=== PATIENT | male | born 1955 | race Caucasian/White ===

== ENCOUNTER 2016-10-20 17:36 | Emergency (ER) | payer OTHER ==
[~2016-10-20] VITALS: Ht 182.9 cm; Wt 108.8 kg
[~2016-10-20 17:36] MED LIST: ADVIL200 M1 PO; ALEVE220 MG PO; ASPIR 8181 M1 PO; ATORVASTATIN CA20 MG PO; Aspirin E.C. PO; BYSTOLIC5 MG PO; CIPRO500 MG PO; COUMADIN1 MG PO; COUMADIN4 MG PO; FLAGYL500 MG PO; HUMALOG100 UNIT/1 SC; HUMALOG100 UNIT/2 SC; Habitrol,Nicoderm CQ TD; IMDUR60 MG PO; Imdur PO; LANTUS 3 M100 UNITS/ PO; LANTUS 3 M100 UNITS1 SC; LEVOTHROID125 MCG PO; LEVOTHROID175 MCG PO; LEVOTHYROXINE25 MCG PO; LIPITOR20 MG PO; LISINOPRIL-HCT1 EAC3 PO; Levothroid,Synthroid PO; Lipitor PO; Lopressor PO; NAPROSYN500 MG PO; NITROSTAT0.4 MG SL; NORCO 5/3251 TABLET PO; NOVOLIN 70100 UNIT/1 SQ; NOVOLOG 10100 UNITS/ SC; Nitrostat,NitroQuick SL; OXYCODONE HCL30 MG PO; OXYCONTIN15 MG PO; PANTOPRAZOLE SO40 MG PO; PLAVIX75 MG PO; PROTONIX40 MG PO; Percocet 5/325,Endoc PO; Plavix PO; Protonix PO; TYLENOL325 M1 PO; ULTRAM50 MG PO; WARFARIN SODIUM1 MG PO; WARFARIN SODIUM4 MG PO; ZESTRIL,PRINIVI20 MG PO; ZOFRAN8 MG PO; Zestoretic,Prinzide PO; oxyCODONE PO
[2016-10-20 18:15] LABS: HEMATOCRIT 50.2 % (38.0-50.0); MCH 29.8 PG (29.0-34.0); MCHC 33.3 G/DL (30.0-36.0); MCV 89.5 FL (86-99); MEAN PLAT.VOLUME 9.9 uM^3 (9.0-12.4); PLATELET COUNT 212 K/uL (156-360); RBC DIS.WIDTH-CV 12.5 % (11.8-14.6); RBC DIS.WIDTH-SD 41.1 % (39-53); RED BLOOD COUNT 5.61 M/uL (4.00-5.50); WHITE BLOOD COUNT 8.5 K/uL (4.1-10.2)
[2016-10-20 18:26] LABS: CHLORIDE 103 mEq/L (99-109); POTASSIUM 4.1 mEq/L (3.7-5.4); SODIUM 138 mEq/L (136-147)
[2016-10-20 18:28] LABS: GLUCOSE 142 mg/dL (70-99)
[2016-10-20 18:30] LABS: ANION GAP 8 MEQ/L (2-14)
[2016-10-20 18:32] LABS: GFR ESTIMATE (CALCULATED) > 59 mL/min/
[2016-10-20 18:33] LABS: UREA NITROGEN (BUN) 14 mg/dL (9-23)
[2016-10-20 19:04] LABS: ADD MIUA? YES; BILIRUBIN NEGATIVE; BLOOD SMALL; COLOR YELLOW ((YELLOW)); GLUCOSE (STRIP) NEGATIVE; KETONES NEGATIVE; LEUKOCYTES NEGATIVE; NITRITE NEGATIVE; PROTEIN (STRIP) NEGATIVE; SPECIFIC GRAVITY 1.016 (1.000-1.030); UROBILINOGEN 0.2 MG/DL (0.2-1.0)
[2016-10-20 19:13] LABS: BACTERIA NONE SEEN /HPF; EPITHELIAL CELLS RARE /HPF; MUCUS TRACE /LPF; UCUL ADDED? NO; WHITE BLOOD CELLS 0-5 /HPF (0-5)
[2016-10-20 19:18] LABS: TOTAL BILIRUBIN 0.4 mg/dL (0.0-1.0)
[2016-10-20 19:19] LABS: ALKALINE PHOSPHATASE 68 IU/L (3-129)
[2016-10-20 19:24] LABS: DIRECT BILIRUBIN 0.1 mg/dL (0.0-0.3); LIPASE 9 U/L (1.0-51.0)
[2016-10-20 21:00] LABS: TROP-I INTERPRETATION NEGATIVE; TROPONIN-I < 0.01 ng/mL (0.0-0.30)
[2016-10-20] MEDS ORDERED: ISOSORBIDE MONO60 MG PO (22:41)
[2016-10-20] MEDS ORDERED: LEVAQUIN500 MG PO (22:46)
[2016-10-20 23:02] VITALS: BP 158/98
== END 2016-10-20 23:03 | disposition home or self-care (01) ==
LOC: EME 17:36
DX: R07.9 Chest pain, unspecified (principal); R10.9 Unspecified abdominal pain; N40.0 Benign prostatic hyperplasia without lower urinary tract symptoms; R31.29 Other microscopic hematuria; N41.0 Acute prostatitis; G89.29 Other chronic pain; E11.9 Type 2 diabetes mellitus without complications; J44.9 Chronic obstructive pulmonary disease, unspecified; E78.5 Hyperlipidemia, unspecified; I10 Essential (primary) hypertension; I25.2 Old myocardial infarction; K21.9 Gastro-esophageal reflux disease without esophagitis; Z87.442 Personal history of urinary calculi; I73.9 Peripheral vascular disease, unspecified; Z86.73 Personal history of transient ischemic attack (TIA), and cerebral infarction without residual deficits; Z98.61 Coronary angioplasty status; Z79.4 Long term (current) use of insulin; Z79.82 Long term (current) use of aspirin; F17.200 Nicotine dependence, unspecified, uncomplicated
CPT/HCPCS: 71010; 74176; 80048; 80076; 81003; 83690; 84484; 85027; 87086; 93005; 99281; 99285; J1885; J3010

== ENCOUNTER 2017-01-01 06:27 | Emergency (ER) | payer OTHER ==
[~2017-01-01] VITALS: Ht 182.9 cm; Wt 108.2 kg
[~2017-01-01 06:27] MED LIST changes: +ISOSORBIDE MONO60 MG PO; +LEVAQUIN500 MG PO
[2017-01-01] MEDS ORDERED: PERCOCET 5/31 TABLET PO (08:10)
[2017-01-01 08:35] VITALS: BP 169/89
== END 2017-01-01 08:36 | disposition home or self-care (01) ==
LOC: EME 06:27
PROC: 2W3EX1Z Immobilization of Right Hand using Splint (ICD-10-PCS; principal; 2017-01-01)
DX: M21.241 Flexion deformity, right finger joints (principal); X50.9XXA Other and unspecified overexertion or strenuous movements or postures, initial encounter; Y93.89 Activity, other specified; E11.9 Type 2 diabetes mellitus without complications; I10 Essential (primary) hypertension; I25.2 Old myocardial infarction; Z95.5 Presence of coronary angioplasty implant and graft; Z79.82 Long term (current) use of aspirin; Z79.4 Long term (current) use of insulin; Z72.0 Tobacco use
CPT/HCPCS: 73110; 73130; 99281; 99284

== ENCOUNTER 2017-05-28 07:47 | Day surgery (SDC) | payer OTHER ==
[~2017-05-28] VITALS: Ht 182.9 cm; Wt 105.0 kg
[~2017-05-28 07:47] MED LIST changes: +DOCUSATE SODIU100 MG PO; +OXYCODONE HCL15 MG PO; +PERCOCET 5/31 TABLET PO; +ZOLPIDEM TARTRAT5 MG PO
[2017-05-28 09:02] LABS: POINT-OF-CARE METER ID UU13113696
== END 2017-05-28 16:30 | disposition home or self-care (01) ==
LOC: CATH 07:47
PROVIDERS: Internal Medicine Cardiovascular Disease
DX: I25.10 Atherosclerotic heart disease of native coronary artery without angina pectoris (principal); I10 Essential (primary) hypertension; E78.5 Hyperlipidemia, unspecified; E11.9 Type 2 diabetes mellitus without complications; Z98.61 Coronary angioplasty status; Z79.82 Long term (current) use of aspirin; F17.200 Nicotine dependence, unspecified, uncomplicated; Z82.49 Family history of ischemic heart disease and other diseases of the circulatory system; Z79.02 Long term (current) use of antithrombotics/antiplatelets; Z79.4 Long term (current) use of insulin
CPT/HCPCS: 82948; 93005; C1769; C1887; J1644; J1815; J2250; J3010

== ENCOUNTER 2017-08-20 16:07 | Emergency (ER) | payer OTHER ==
[~2017-08-20] VITALS: Ht 182.9 cm; Wt 114.8 kg
[2017-08-20 17:04] LABS: HEMATOCRIT 45.3 % (38.0-50.0); HEMOGLOBIN 15.4 G/DL (12.5-16.6); MCH 30.8 PG (29.0-34.0); MCV 90.6 FL (86-99); PLATELET COUNT 200 K/uL (156-360); RBC DIS.WIDTH-CV 13.2 % (11.8-14.6); RBC DIS.WIDTH-SD 43.8 % (39-53)
[2017-08-20 17:13] LABS: CHLORIDE 99 mEq/L (99-109); POTASSIUM 4.2 mEq/L (3.7-5.4); SODIUM 135 mEq/L (136-147)
[2017-08-20 17:15] LABS: GLUCOSE 293 mg/dL (70-99); TOTAL PROTEIN 6.6 g/dL (6.4-8.3)
[2017-08-20 17:17] LABS: TOTAL BILIRUBIN 0.4 mg/dL (0.0-1.0)
[2017-08-20 17:18] LABS: ALKALINE PHOSPHATASE 65 IU/L (3-129)
[2017-08-20 17:19] LABS: CREATININE 1.4 mg/dL (0.6-1.3); GFR ESTIMATE (CALCULATED) 54 mL/min/ (58.99-99999)
[2017-08-20 17:20] LABS: AST (GOT) 27 IU/L (2-34); UREA NITROGEN (BUN) 16 mg/dL (9-23)
[2017-08-20 17:21] LABS: ALT (GPT) 32 IU/L (3-49)
[2017-08-20 17:24] LABS: TROP-I INTERPRETATION NEGATIVE; TROPONIN-I < 0.01 ng/mL (0.0-0.30)
[2017-08-20 17:52] LABS: PTT 30.3 SEC (25-37)
[2017-08-20 20:49] LABS: TROP-I INTERPRETATION NEGATIVE; TROPONIN-I < 0.01 ng/mL (0.0-0.30)
[2017-08-20] MEDS ORDERED: VENTOLIN HFA18 GM IH (21:07)
[2017-08-20 21:10] VITALS: BP 165/84
== END 2017-08-20 21:11 | disposition left against medical advice (07) ==
LOC: EME 16:07
PROVIDERS: Nurse Practitioner Family
DX: R06.02 Shortness of breath (principal); E11.9 Type 2 diabetes mellitus without complications; J44.9 Chronic obstructive pulmonary disease, unspecified; E78.5 Hyperlipidemia, unspecified; I25.2 Old myocardial infarction; F17.200 Nicotine dependence, unspecified, uncomplicated; Z87.442 Personal history of urinary calculi; Z86.73 Personal history of transient ischemic attack (TIA), and cerebral infarction without residual deficits; Z98.61 Coronary angioplasty status; Z79.4 Long term (current) use of insulin; Z79.82 Long term (current) use of aspirin; Z88.5 Allergy status to narcotic agent
CPT/HCPCS: 71046; 71275; 80053; 84484; 85027; 85379; 85610; 85730; 93005; 94640; 99281; 99285; J7030